=== PATIENT | male | born 1960 | race Two or more races ===

== ENCOUNTER → 2017-09-05 | Outpatient (CLI) | payer OTHER ==
[~2017-09-05] VITALS: Ht 177.8 cm; Wt 90.7 kg
[~2017-09-05] MED LIST: CEFUROXIME500 MG PO; MUCINEX600 MG PO
== END | disposition home or self-care (01) ==
LOC: OFIC 805 08:55
DX: J01.80 Other acute sinusitis (principal); H61.23 Impacted cerumen, bilateral; K14.1 Geographic tongue

== ENCOUNTER 2017-09-17 08:54 | Outpatient (CLI) | payer OTHER ==
[~2017-09-17] VITALS: Ht 152.4 cm; Wt 90.7 kg
== END 2017-09-17 09:10 | disposition home or self-care (01) ==
LOC: OFIC 805 08:54
DX: J01.80 Other acute sinusitis (principal); R09.81 Nasal congestion; R49.0 Dysphonia

== ENCOUNTER 2017-09-17 10:43 | Outpatient (CLI) | payer OTHER | END 2017-09-17 10:52 | disposition home or self-care (01) | LOC: RAD 501 10:43 | DX: M25.552 Pain in left hip (principal); M25.561 Pain in right knee; M25.551 Pain in right hip ==

== ENCOUNTER 2017-12-19 10:46 | Outpatient (CLI) | payer OTHER ==
[~2017-12-19] VITALS: Ht 152.4 cm; Wt 90.7 kg
== END 2017-12-19 11:05 | disposition home or self-care (01) ==
LOC: OFIC 805 10:46
DX: J32.8 Other chronic sinusitis (principal)

== ENCOUNTER 2017-12-21 11:01 | Outpatient (CLI) | payer OTHER ==
[~2017-12-21] VITALS: Ht 152.4 cm; Wt 90.7 kg
== END 2017-12-21 11:20 | disposition home or self-care (01) ==
LOC: OFIC 805 11:01
DX: J32.0 Chronic maxillary sinusitis (principal); J31.0 Chronic rhinitis; R09.81 Nasal congestion

== ENCOUNTER 2020-05-26 10:16 | Outpatient (CLI) | payer OTHER | END 2020-05-26 10:31 | disposition home or self-care (01) | LOC: RAD 10:16 | PROVIDERS: ATTEND Physical Medicine & Rehabilitation | DX: M25.512 Pain in left shoulder (principal); M75.122 Complete rotator cuff tear or rupture of left shoulder, not specified as traumatic ==

== ENCOUNTER → 2020-06-21 06:20 | Outpatient (CLI) | payer OTHER ==
[~2020-06-21 06:20] MED LIST changes: +ADCIRCA20 MG PO; +BUPROPION HCL200 M1 PO; +COZAAR100 MG PO; +CYTOMEL25 MCG PO; +LITHOBID300 M1 PO; +SYNTHROID50 MCG PO
== END | disposition home or self-care (01) ==
LOC: LAB 06:20
PROVIDERS: ATTEND Orthopaedic Surgery
DX: D64.89 Other specified anemias (principal); E88.89 Other specified metabolic disorders; D68.8 Other specified coagulation defects; N39.0 Urinary tract infection, site not specified; Z22.322 Carrier or suspected carrier of Methicillin resistant Staphylococcus aureus; Z76.89 Persons encountering health services in other specified circumstances

== ENCOUNTER → 2020-06-23 09:47 | Outpatient (CLI) | payer OTHER | END | disposition home or self-care (01) | LOC: EKG 09:47 → LAB 09:47 | PROVIDERS: ATTEND Orthopaedic Surgery | DX: I10 Essential (primary) hypertension (principal); I49.8 Other specified cardiac arrhythmias ==

== ENCOUNTER 2020-06-29 08:19 | Day surgery (SDC) | payer OTHER | END 2020-06-29 20:00 | disposition home or self-care (01) | LOC: CIR.AMB 08:19 | PROVIDERS: ATTEND Orthopaedic Surgery | DX: M75.122 Complete rotator cuff tear or rupture of left shoulder, not specified as traumatic (principal); D16.02 Benign neoplasm of scapula and long bones of left upper limb; Z20.828 Contact with and (suspected) exposure to other viral communicable diseases ==

== ENCOUNTER 2020-09-23 07:28 | Outpatient (CLI) | payer OTHER | END 2020-09-23 07:38 | disposition home or self-care (01) | LOC: RAD 07:28 | PROVIDERS: ATTEND Orthopaedic Surgery | DX: D16.32 Benign neoplasm of short bones of left lower limb (principal); M25.512 Pain in left shoulder ==

== ENCOUNTER → 2020-12-01 | Outpatient (CLI) | payer OTHER | END | disposition home or self-care (01) | LOC: RAD 15:32 | PROVIDERS: ATTEND Physical Medicine & Rehabilitation | DX: M54.5 Low back pain (principal); M54.6 Pain in thoracic spine ==

== ENCOUNTER 2021-06-30 09:00 | Outpatient (CLI) | payer OTHER | END 2021-06-30 09:30 | disposition home or self-care (01) | LOC: PPH VACUNA 09:00 | PROVIDERS: ATTEND Emergency Medicine Pediatric Emergency Medicine | DX: Z23 Encounter for immunization (principal) ==

== ENCOUNTER 2021-10-04 07:49 | Outpatient (CLI) | payer OTHER | END 2021-10-04 07:57 | disposition home or self-care (01) | LOC: RAD 07:49 | PROVIDERS: ATTEND Orthopaedic Surgery | DX: D16.32 Benign neoplasm of short bones of left lower limb (principal) ==

== ENCOUNTER 2022-02-21 10:54 | Outpatient (CLI) | payer OTHER | END 2022-02-21 11:10 | disposition home or self-care (01) | LOC: PPH VACUNA 10:54 | PROVIDERS: ATTEND Emergency Medicine Pediatric Emergency Medicine | DX: Z23 Encounter for immunization (principal) ==

== ENCOUNTER 2022-08-30 13:45 | Outpatient (CLI) | payer OTHER | END 2022-08-30 13:55 | disposition home or self-care (01) | LOC: PPH VACUNA 13:45 | PROVIDERS: ATTEND Emergency Medicine Pediatric Emergency Medicine | DX: Z23 Encounter for immunization (principal) ==

== ENCOUNTER 2024-06-10 13:20 | Outpatient (CLI) | payer OTHER | END 2024-06-10 13:29 | disposition home or self-care (01) | LOC: RAD 13:20 | PROVIDERS: ATTEND Physical Medicine & Rehabilitation | DX: M25.532 Pain in left wrist (principal) ==